=== PATIENT | female | born 1955 | race Caucasian/White ===

== ENCOUNTER 2019-06-25 06:20 | Inpatient (IN) ==
[2019-06-25] MEDS ORDERED: NS 1,000 ML IV ONE ×2 (06:46→12:28)
[2019-06-25] MEDS ORDERED: MOTRIN PO ONE (07:18)
[2019-06-25 07:21] LABS: BILIRUBIN URINE NEGATIVE (NEGATIVE); BLOOD URINE 4+ (NEGATIVE); CLARITY SL. CLOUDY (CLEAR); COLOR AMBER; KETONE URINE 3+(Large) mg/dL (NEGATIVE); LEUKOCYTES URINE 2+ (NEGATIVE); NITRITE URINE NEGATIVE (NEGATIVE); PH URINE 6.5; PROTEIN URINE 2+(100 mg/dL) mg/dL (NEGATIVE); UROBILINOGEN URINE 1 mg/dL
[2019-06-25 07:22] LABS: BASO# 0.02 X1000 (0.0-0.2); BASO% 0.2 % (0.0-0.8); EOS# 0.02 X1000 (0.0-0.7); EOS% 0.2 % (0.0-10.0); HEMATOCRIT 38.2 % (37.0-47.0); HEMOGLOBIN 13.3 g/dL (12.0-16.0); IMM GRAN# 0.02 X1000 (0.0-0.04); IMM GRAN% 0.2 % (0.0-0.5); LYMPH# 0.84 X1000 (1.2-3.4); LYMPH% 6.7 % (20.5-51.1); MCHC 34.8 g/dL (33-37); MCV 83.2 FL (81-99); MONO# 0.54 X1000 (0.11-0.59); MONO% 4.3 % (1.7-9.3); MPV 9.6 FL (7.4-10.4); NEUT# 11.18 X1000 (1.4-6.5); NEUT% 88.4 % (42.2-75.2); PLT 176 X1000 (130-400); RBC 4.59 XMIL (4.2-5.4); RDW 14.3 % (11.5-14.5); WBC 12.62 X1000 (4.8-10.8)
--- NOTE | 2019-06-25 07:26 | PROVIDER DOCUMENTATION ---
HPI-Abdominal Pain/GI Problem - General Chief Complaint: Fever Stated Complaint: VOMITING / FEVER / SORE THROAT Time Seen by Provider: 06/25/19 07:20 Source: patient Allergies/Adverse Reactions: Patient Allergies Allergy/AdvReac Type Severity Reaction Status Date / Time morphine Allergy NAUSEA Verified 06/25/19 08:48 Penicillins Allergy RASH Verified 04/30/18 18:08 Home Medications: Home Medication List Medication Instructions Recorded Confirmed Last Taken Type NK [No Home Medications] 06/25/19 06/25/19 Unknown History - History of Present Illness-ABD Nature of Presenting Problems: vomited x 2 wednesday and fever 102 vomiting foamy stuff wednesday night off and on all day yesterday and today with epigastric pain sees stephon elias sore throat on fire.has hx ibs/pancreatitis sp gb sp ercp 10 yrs Abdominal Pain Onset Location: reports: epigastric Pain Radiation: reports: no radiation Quality of Pain: reports: sharp Severity in ED: reports: mild Onset/Duration: reports: 2 days ago Timing: reports: gone now Activities at Onset: reports: none Exposure to sick contacts?: No Modifying Factors: worse with: eating, vomiting Associated Symptoms: reports: diarrhea, fever/chills, loss of appetite, nausea, vomiting Last BM: this morning Dark Stools Present?: reports: none noticed # of Diarrhea Episodes: 3 # of Vomiting Episodes: 12 Emesis Description: reports: none Bruising or Bleeding Gums?: No Similar Symptoms Previously?: No Recently seen or treated by another doctor?: No Review of Systems - Adult - REVIEW OF SYSTEMS - ADULT Constitutional: reports: chills, fever, fatique Eyes: reports: no symptoms reported Ears, Nose, Mouth & Throat: reports: no symptoms reported Cardiovascular: reports: no symptoms reported Respiratory: denies: cough, shortness of breath Gastrointestinal: reports: no symptoms reported Genitourinary: denies: frequency, hematuria Musculoskeletal: reports: muscle aches Integumentary: reports: no symptoms reported Neurological: reports: no symptoms reported Endocrine: reports: no symptoms reported Allergic/Immunologic: reports: no symptoms reported Past History - Adult - PAST MEDICAL HISTORY-ADULT Review of Records: reports: Nursing Assessment Review, Medications Reviewed, Social history reviewed & non-contributory. Major Childhood Illnesses: reports: denies history Cardiovascular: reports: HTN Respiratory: reports: bronchitis Gastrointestinal: reports: cholelithiasis, GERD, IBS, pancreatitis. denies: diverticulosis, hepatitis Obstetrical/Gynecological: reports: other (breast ca) Genitourinary: reports: denies history Musculoskeletal: reports: chronic pain, fibromyalgia Neurological: reports: denies history Endocrine/Immune: denies: Diabetes, thyroid disorder - PRIOR SURGERIES/PROCEDURES Surgical/Procedure History: reports: cholecystectomy, hysterectomy, other (left breast lumpectomy) - IMMUNIZATION STATUS Childhood Immunizations: See Nurse Assessment Flu Vaccine: See Nurse Assessment - SOCIAL HISTORY Smoking: denies Substance Use: none/never Alcohol Use Frequency: never Physical Exam-General - PHYSICAL EXAM-ADULT Initial Vital Signs Reviewed: Yes - CONSTITUTIONAL General Appearance: appears well - EYES Eyes: PERRL/EOMI, pink conjunctivae - HEAD, EARS, NOSE, MOUTH & THROAT HENMT: normocephalic/atraumatic, moist mucous membranes, normal ENT inspection - NECK Neck: non-tender, full range of motion, supple - RESPIRATORY Respiratory: chest non-tender, lungs clear, normal breath sounds - CARDIOVASCULAR Cardiovascular: normal peripheral pulses, regular rate, rhythm, no edema - GASTROINTESTINAL (ABDOMEN) Abdominal Exam: normal bowel sounds, non tender, soft, no organomegaly - LYMPHATIC Lymphatic: no adenopathy - MUSCULOSKELETAL Back Exam: normal inspection, no CVA tenderness, no vertebral tenderness Extremity: normal range of motion, non-tender, normal gait - SKIN Integumentary: normal color, normal turgor - NEUROLOGIC Neurologic: 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 as tested, grossly normal - PSYCHIATRIC Psych/Mental Status: oriented x 3 Progress - PLAN OF CARE/RESULTS Progress/Plan/Lab Results: Vital Signs - 8 hr 06/25/19 06:30 Temperature 101.2 F H Pulse Rate 129 H Respiratory Rate 20 Blood Pressure 165/96 O2 Sat by Pulse Oximetry 98 Orders Category Date Time Status CHEST-1 VIEW [RAD] Stat Exams 06/25/19 06:46 Ordered AMYLASE [CHEM] Stat Lab 06/25/19 06:59 Received BLOOD CULTURE [BLDCUL] Stat Lab 06/25/19 06:59 Ordered CBC WITH ELECTRONIC DIFF [HEME] Stat Lab 06/25/19 06:59 Results COMPREHENSIVE METABOLIC PANEL [CHEM] Stat Lab 06/25/19 06:59 Received LACTATE, PLASMA [CHEM] Stat Lab 06/25/19 06:59 Received LIPASE [CHEM] Stat Lab 06/25/19 06:59 Received UA NIMS W/REFLEX CULT PL [URINALYSIS] Stat Lab 06/25/19 06:47 Received 0.9% Sodium Chloride Inj [Ns] 1,000 ml Med 06/25/19 06:46 Active IV 999 mls/hr Ibuprofen [Motrin] Med 06/25/19 07:18 Discontinued 600 mg PO NOW ONE Laboratory Tests 06/25/19 06/25/19 06/25/19 06:47 06:59 06:59 WBC 12.62 H RBC 4.59 Hgb 13.3 Hct 38.2 MCV 83.2 MCH 29.0 MCHC 34.8 RDW Std Deviation 14.3 Plt Count 176 MPV 9.6 Immature Gran % (Auto) 0.2 Neut % (Auto) 88.4 H Lymph % (Auto) 6.7 L [place] % (Auto) 4.3 Eos % (Auto) 0.2 Baso % (Auto) 0.2 Immature Gran # (Auto) 0.02 Neut # (Auto) 11.18 H Lymph # (Auto) 0.84 L [place] # (Auto) 0.54 Eos # (Auto) 0.02 Baso # (Auto) 0.02 PT INR PTT (Actin FS) Sodium Potassium Chloride Carbon Dioxide Anion Gap BUN Creatinine Estimated GFR/1.73 m2 BUN/Creatinine Ratio Glucose Calculated Osmolality Calcium Total Bilirubin AST ALT Alkaline Phosphatase Total Protein Albumin Globulin Albumin/Globulin Ratio Amylase 38 Lipase Plasma Lactate Urine Source CLEAN CATCH Urine Color ZAINAB Urine Clarity SL. CLOUDY A Urine pH 6.5 Ur Specific [place] 1.020 Urine Protein 2+(100 mg/dL) A Urine Ketones 3+(Large) A Urine Blood 4+ Urine Nitrite NEGATIVE Urine Bilirubin NEGATIVE Urine Urobilinogen 1 Urine Microscopic RBC 20-40 A Urine WBC 2+ A Urine Microscopic WBC 10-20 A Ur Epithelial Cells <10 Urine Bacteria 1+ Urine Glucose TRACE(50 mg/dL) A 06/25/19 06/25/19 06/25/19 06:59 06:59 06:59 WBC RBC Hgb Hct MCV MCH MCHC RDW Std Deviation Plt Count MPV Immature Gran % (Auto) Neut % (Auto) Lymph % (Auto) [place] % (Auto) Eos % (Auto) Baso % (Auto) Immature Gran # (Auto) Neut # (Auto) Lymph # (Auto) [place] # (Auto) Eos # (Auto) Baso # (Auto) PT 13.7 INR 1.00 PTT (Actin FS) 30.5 Sodium 136 Potassium 4.1 Chloride 94 L Carbon Dioxide 26 Anion Gap 17 BUN 13 Creatinine 0.5 Estimated GFR/1.73 m2 > 60 BUN/Creatinine Ratio 26 Glucose 150 H Calculated Osmolality 275 Calcium 7.8 L Total Bilirubin 3.30 H AST 27 ALT 24 Alkaline Phosphatase 96 Total Protein 6.8 Albumin 4.4 Globulin 2.0 Albumin/Globulin Ratio 2.0 Amylase Lipase 13 Plasma Lactate 2.4 H Urine Source Urine Color Urine Clarity Urine pH Ur Specific [place] Urine Protein Urine Ketones Urine Blood Urine Nitrite Urine Bilirubin Urine Urobilinogen Urine Microscopic RBC Urine WBC Urine Microscopic WBC Ur Epithelial Cells Urine Bacteria Urine Glucose Result Diagrams: 06/25/19 06:59 06/25/19 06:59 - XRAY 1 XRAY Study: Chest Impression: See EMR Report ([facility] - [address] [facility], [address] [place] [id number] [facility] - [address] [place] [address] Department of Imaging Patient: TIGRE BROUSSARD Date: 06/25/19MR#: [id number] : 1955DM Status: PRE ERAcct#: [id number] Age/Sex: 64/FRoom/Bed: Loc: P.ED Ordering Physician: Samanta Salas MD Family Physician: Rashid Nicholas MD Reason for Procedure: SEPSIS Signed EXAM: CHEST-1 VIEW 06/25/2019 HISTORY: SEPSIS TECHNIQUE: AP portable at 0730 COMMENT: There is platelike atelectasis in the lingula. This was not present on 05/29/2019. The inspiration is generally less optimal than on the previous study. IMPRESSION: Lingular atelectasis. Electronically signed by Amaury Paulino 06/25/2019 7:47 AM 06/25/19 0747 Interpreting Physician: Amaury Paulino MD Dictated Date/Time: 06/25/19 0746 cc: Samanta Salas MD; Rashid Nicholas MD) - CT/MRI 1 CT Study: Abdomen, Pelvis Impression: See EMR Report ([facility] - [address] , [address], [place] [address] [facility] - [address] [place] [address] Department of Imaging Patient: TIGRE BROUSSARD Date: 06/25/19#: [id number] : 1955DM Status: [facility]#: [id number] Age/Sex: 64/FRoom/Bed: Loc: P.ED Ordering Physician: Mil Bond MD Family Physician: Rashid Nicholas MD Reason for Procedure: epigastric pain Signed EXAM: CT ABD/PELVIS W/IV CONT ONLY 06/25/2019 HISTORY: epigastric pain TECHNIQUE: This exam was performed using automated exposure control, adjustment of mA or kV according to patient size, and/or use of iterative reconstruction technique. COMMENT: The current study is compared with the previous examination of 04/18/2013. There is dependent atelectasis in both lower lobes. There is platelike fibrosis in the inferior lingula. This was present at the time the previous study. There is a small hiatal hernia. The spleen is at the upper limits of normal in size. There has been cholecystectomy. There is some fatty change near the falciform ligament groove. There is no evidence of hydronephrosis or mass in the kidneys. The right renal pelvis is prominent and this has not changed since the previous study. There is a questionable nodule in the left adrenal gland centrally measuring 12 mm in diameter. This is larger than on the previous examination. In the absence of a history of neoplasm this is likely an adenoma. The pancreas is stable in appearance. There are some prominent mesenteric nodes on the left one of which measures is much as 15 mm in long axis. There is increased density in the mesenteric fat consistent with mild mesenteric panniculitis. There is no evidence of bowel obstruction. The abdominal aorta is normal in caliber and the mesenteric and renal arteries are patent. Pelvis: The appendix is normal in appearance. There is no evidence of free fluid. There has been previous hysterectomy. The urinary bladder is unremarkable. There are no masses and there is no evidence of significant adenopathy. There are some degenerative disc and facet changes in the lumbar spine. There is no evidence of acute bony abnormality. IMPRESSION: Mesenteric panniculitis. Bibasilar subsegmental atelectasis. Electronically signed by Amaury Paulino 06/25/2019 9:48 AM 06/25/19 0948 Interpreting Physician: Amaury Paulino MD Dictated Date/T stephanie: 06/25/19 0942 cc: Mil Bond MD; Rashid Nicholas MD) - CONSULTS/PCP/HOSPITALIST Notification #1 *Consult/PCP/Hospitalist*: Dr. Lima Time Discussed: 10:47 Reason/Comments: UTI; panniculitis Consult Disposition: Admit Departure - Departure Date of Disposition Decision: 06/25/19 Time of Disposition Decision: 10:47 DIAGNOSIS: Panniculitis UTI (urinary tract infection) Qualifiers: Urinary tract infection type: site unspecified Hematuria presence: with hematuria Qualified Code(s): N39.0 - Urinary tract infection, site not specified; R31.9 - Hematuria, unspecified Disposition: ADMITTED INPATIENT 09 Certified Medical Emergency: Emergent Condition: Fair Referrals and Follow-Ups: Rashid Nicholas MD [Primary Care Provider] - - Critical Care Note This patient required my direct & personal management of CC.: No Attestation - Physician/ URI Attestation Patient care was provided by Advanced Practice Provider:: No The physician spent face to face time with patient:: Yes Advanced Practice Provider documentation review:: Supervising physician onsite and consulted in the evaluation and care of this patient. The physician did have a face to face encounter with the patient.
--- NOTE | 2019-06-25 07:49 | Diag Imaging Result Doc PS360 ---
EXAM: CHEST-1 VIEW 06/25/2019 HISTORY: SEPSIS TECHNIQUE: AP portable at 0730 COMMENT: There is platelike atelectasis in the lingula. This was not present on 05/29/2019. The inspiration is generally less optimal than on the previous study. IMPRESSION: Lingular atelectasis. Electronically signed by Amaury Paulino 06/25/2019 7:47 AM
[2019-06-25 07:54] LABS: AGAP 17; ALBUMIN 4.4 g/dL (3.5-5.0); ALKALINE PHOSPHATASE 96 U/L (32-104); BUN 13 mg/dL (8-22); CALCIUM 7.8 mg/dL (8.8-10.2); CHLORIDE 94 mmol/L (98-107); COSMO 275; CREATININE 0.5 mg/dL (0.5-0.9); ESTIMATED GFR > 60; GLUCOSE 150 mg/dL (70-104); GOT 27 U/L (10-30); GPT 24 U/L (10-36); LIPASE 13 U/L (13-60); POTASSIUM 4.1 mmol/L (3.5-5.1); SODIUM 136 mmol/L (136-145); TCO2 26 mmol/L (25-35); TOTAL PROTEIN 6.8 g/dL (6.3-8.3)
[2019-06-25 08:15] LABS: URINE BACTERIA 1+ /HFP; URINE EPITHELIAL CELLS <10 /HPF (<10); URINE RBC 20-40 /HPF (<10); URINE SOURCE CLEAN CATCH
[2019-06-25] MEDS ORDERED: MERREM 1 GM in NS 50 ML IV ONE (08:52)
[2019-06-25] MEDS ORDERED: VANCOMYCIN 1 GM/NS 1 GM/250 ML IVPB IV ONE ×2 (08:54→13:00)
--- NOTE | 2019-06-25 09:50 | Diag Imaging Result Doc PS360 ---
EXAM: CT ABD/PELVIS W/IV CONT ONLY 06/25/2019 HISTORY: epigastric pain TECHNIQUE: This exam was performed using automated exposure control, adjustment of mA or kV according to patient size, and/or use of iterative reconstruction technique. COMMENT: The current study is compared with the previous examination of 04/18/2013. There is dependent atelectasis in both lower lobes. There is platelike fibrosis in the inferior lingula. This was present at the time the previous study. There is a small hiatal hernia. The spleen is at the upper limits of normal in size. There has been cholecystectomy. There is some fatty change near the falciform ligament groove. There is no evidence of hydronephrosis or mass in the kidneys. The right renal pelvis is prominent and this has not changed since the previous study. There is a questionable nodule in the left adrenal gland centrally measuring 12 mm in diameter. This is larger than on the previous examination. In the absence of a history of neoplasm this is likely an adenoma. The pancreas is stable in appearance. There are some prominent mesenteric nodes on the left one of which measures is much as 15 mm in long axis. There is increased density in the mesenteric fat consistent with mild mesenteric panniculitis. There is no evidence of bowel obstruction. The abdominal aorta is normal in caliber and the mesenteric and renal arteries are patent. Pelvis: The appendix is normal in appearance. There is no evidence of free fluid. There has been previous hysterectomy. The urinary bladder is unremarkable. There are no masses and there is no evidence of significant adenopathy. There are some degenerative disc and facet changes in the lumbar spine. There is no evidence of acute bony abnormality. IMPRESSION: Mesenteric panniculitis. Bibasilar subsegmental atelectasis. Electronically signed by Amaury Paulino 06/25/2019 9:48 AM
[2019-06-25 10:41] LABS: PROTIME 13.7 Seconds (11.0-16.0)
[2019-06-25 10:42] LABS: PTT 30.5 Seconds (22.3-41.8)
[2019-06-25] MEDS ORDERED: MOTRIN PO PRN (11:13)
[2019-06-25] MEDS ORDERED: VANCOMYCIN IV PER PHARMACY MISC SCH (11:15)
[2019-06-25] MEDS: LOVENOX SUBQ SCH (11:50)
[2019-06-25] MEDS: NS 1,000 ML IV SCH ×2 (11:50→21:51)
[2019-06-25] MEDS: TYLENOL PO PRN ×2 (13:06→21:57)
--- NOTE | 2019-06-25 15:16 | HISTORY AND PHYSICAL ---
WEATHER STRIPPER: Dr. Rashid Nicholas. CHIEF COMPLAINT: Fever, nausea, vomiting and abdominal pain. HISTORY OF PRESENT ILLNESS: Ms Castro is a 64-year-old female. She presented to the ER today with complaints of fever, nausea, vomiting, and abdominal pain that started on Wednesday. The patient states she has been unable to eat or drink anything since . She has also got severe weakness, headache, right-sided abdominal pain. She had some diarrhea yesterday. When she vomits she states the vomit is a foamy consistency and a very small amount. She has had chills. She denies any sweats. Denies any palpitations. States that she has not been disoriented however though she has felt very foggy headed. The patient is positive for abdominal tenderness to the lower right side and in the midsternal area. This is worse with palpation. The patient states that she has not had any difficulty urinating. She does not have any blood in her urine. She does not have any frequency or urgency. When asked her if she had any pain when urinating she states that she did have some pain noted to her right side. This was last week sometime and it was above her hip bone. The patient states she has also been having some swelling of her feet but this has been going on for the past 6 months. She does not have any swelling at this time. The patient has had a past medical history of pancreatitis, they actually had do procedure on her to open up the pancreatic duct. She also has a past medical history of H pylori. She has also had breast cancer to the left side. She had a lumpectomy and she received chemo and radiation. This was in 2005. The patient denies any chest pain, just lower sternal midabdominal pain and she denies any palpitations. The patient is complaining of a headache at this present time. LABORATORY FINDINGS: Show a white blood cell count elevation at 2.62, her plasma lactate is elevated at 2.5. Her glucose is elevated at 150, total bilirubin is elevated at 3.3. Her AST is 27, ALT is 24. CT of the abdomen and pelvis was performed. It did show some mesenteric panniculitis and bibasilar segmental atelectasis. PAST MEDICAL HISTORY: Pancreatitis, H pylori. PAST SURGICAL HISTORY: The patient had a surgery on her pancreas at the opening pancreatic duct to increase the size. She has had a cholecystectomy, hysterectomy, lumpectomy from the left breast from cancer, this was in 2005, she received chemo and radiation. FAMILY HISTORY: Her dad from colon cancer. Her mom had diabetes and she is also . She has a sister that has lung cancer. SOCIAL HISTORY: Patient lives in [place], [place]. She lives with her . Her is disabled and she takes care of him. She denies any alcohol, smoking, or illicit drug abuse. ALLERGIES: Morphine and penicillin. HOME MEDICATIONS: No home medications. LABS AND DIAGNOSTICS: Sodium 136, potassium 4.1, chloride 94, carbon dioxide 26, anion gap 17, BUN is 13, creatinine is 0.5, GFR is greater than 60, glucose is 150, calcium is 7.8, total bilirubin is 3.30, AST 27, ALT 24, alkaline phosphatase is 96, creatine kinase is 49, troponin is less than 0.01, plasma lactate is 24, amylase is 38, lipase is 13. PT 13.7, INR is 1, PTT is 30.5. White blood cell count is 12.62, red blood cell count is 4.56, hemoglobin is 13.3, hematocrit is 38.2, platelet count is 176,000. Urinalysis shows a pH of 6.5, urine specific gravity of 1.020, urine protein is positive 2+, urine ketones is positive 3+, urine blood is positive 4+, urobilinogen is 1, microscopic RBCs are 20 to 40, white blood cell count 2+ with 10 to 20 microscopic white blood cell count. Urine bacteria is 1+ and trace glucose. CT of the abdomen and pelvis shows mesenteric panniculitis and bibasilar segmental atelectasis. Chest x-ray shows lingular atelectasis. REVIEW OF SYSTEMS: A 10 point review of systems has been obtained. All are negative except what is stated above in the HPI. PHYSICAL EXAMINATION: VITAL SIGNS: Temperature 99.1 degrees, pulse rate is 95, respiratory rate 15, blood pressure is 150/94, O2 saturation is 97% on room air, weight is 160 pounds, height is 5 feet 4. GENERAL: This is a 64-year-old female. She is lying in the ER stretcher. She is well nourished, well developed. She is in no acute distress at present time. HEENT: Atraumatic, normocephalic. Pupils are equal, reactive to light. Extraocular movements are intact. Sclerae is jaundice. Mucous membranes are dry. NECK: Supple. No lymphadenopathy. Trachea is midline. No JVD. No thyromegaly. No bruits. CARDIOVASCULAR: Regular rate and rhythm. No murmurs, gallops, or rubs appreciated. RESPIRATORY: Lung sounds are clear with equal chest excursion. Respirations are nonlabored with no accessory muscle usage. ABDOMEN: Tender to the right side and below the sternal area to palpation. It is soft, it is nondistended and bowel sounds are present x4. NEUROLOGIC: Cranial nerves 2-12 was intact. The patient is awake, alert, oriented, able to follow all commands appropriately. MUSCULOSKELETAL: Full distal strength noted. No abnormalities of gait. No deformities. EXTREMITIES: No clubbing, no cyanosis, no edema. DP and PT pulses are present and palpable. SKIN: Warm, dry, and intact. There is no rashes. No bruising, no diaphoresis. ASSESSMENT AND PLAN: 1. Urinary tract infection. This is possibly a pyelonephritis. Patient states she has not had any blood noted in her urine or any type of drainage. She does not complain any pain, urgency or frequency however, she did have some pain noted to the right side last week sometime. Urinalysis is positive. We will go ahead and admit her to the medical floor. We are going to treat her with some IV antibiotics and start her on IV fluid hydration. 2. Mesenteric panniculitis. As stated above we have started her on IV antibiotics and I have started her on some ibuprofen and Tylenol for the pain. 3. Nausea and vomiting. The patient states she is not been able to keep anything down. We are going to treat her with IV Zofran for this, this is probably likely due to her infection. The patient states she is not vomiting anything up and she did have 1 episode of diarrhea but however she has not been able to eat anything. CT of the abdomen was performed, did show mesenteric panniculitis and patient does have a urinary tract infection. 4. Hyperbilirubinemia. Patient does appear to be a little jaundice. I am going to repeat her labs in the morning. We are going to give her some IV fluid hydration. The patient has had a history of pancreatitis in the past and she also had to have some kind of surgery done to her opening her pancreas. She does not have a gallbladder and her liver enzymes are not elevated. We will see if this resolves with some hydration. 5. Dehydration, I started her on IV fluid hydration. She was given a bolus in the emergency room. Will start her on a diet whenever she is able to hold any fluids down. 6. Abdominal pain. This is likely due to her infection. I started her on some Tylenol and some ibuprofen for her pain. 7. Deep venous thrombosis prophylaxis. I placed her on Lovenox 40 mg subcu q.24 hours. 8. Gastrointestinal prophylaxis. I started her on Prilosec daily. We admitted this patient to the medical floor. We started her on IV fluid hydration and we placed her on IV antibiotics, given her Motrin and Tylenol for her pain, we going to start her on a clear liquid diet and give her IV Zofran as needed for nausea. All other further treatment pending hospital course and lab data. Dictated by TANYA Marinelli for Danis Lima MD cc: Rashid Nicholas MD MTDD
--- NOTE | 2019-06-25 16:31 | HISTORY AND PHYSICAL ---
ADDENDUM: Patient seen and examined by myself. Full note dictated and discussed with nurse practitioner. The patient notes she has had chronic nausea and vomiting off and on for the last several years. She had pancreatitis close to 10 years ago but since that time she frequently will have emesis episodes. Notes that this one seems to be a little bit more severe and a little bit worse. She does have a history of H. pylori as well. She typically does not run fever with these vomiting episodes. It appears as though she has a urinary infection with blood in her urine so we are going to place her on antibiotics. She does have mesentery panniculitis as well. We will continue IV fluids, antibiotics, and we will follow her course. cc: Danis Lima MD
[2019-06-25] MEDS: MERREM 1 GM in NS 50 ML IV SCH (18:14)
[2019-06-26] MEDS: VANCOMYCIN 1,500 MG in NS 250 ML IV SCH ×2 (03:19→12:05)
[2019-06-26] MEDS: MERREM 1 GM in NS 50 ML IV SCH ×3 (03:20→20:18)
[2019-06-26 05:48] LABS: BASO% 0.3 % (0.0-0.8); EOS% 2.8 % (0.0-10.0); HEMATOCRIT 35.6 % (37.0-47.0); IMM GRAN% 0.3 % (0.0-0.5); LYMPH% 13.8 % (20.5-51.1); MCH 28.3 PG (27-31); MCHC 33.7 g/dL (33-37); MONO% 7.2 % (1.7-9.3); MPV 9.7 FL (7.4-10.4); NEUT# 4.38 X1000 (1.4-6.5); NEUT% 75.6 % (42.2-75.2); PLT 159 X1000 (130-400); RBC 4.24 XMIL (4.2-5.4); RDW 14.3 % (11.5-14.5)
[2019-06-26 05:49] LABS: BASO# 0.02 X1000 (0.0-0.2); EOS# 0.16 X1000 (0.0-0.7); IMM GRAN# 0.02 X1000 (0.0-0.04); MONO# 0.42 X1000 (0.11-0.59)
[2019-06-26] MEDS: TYLENOL PO PRN ×2 (06:26→16:36)
[2019-06-26] MEDS: PRILOSEC PO SCH (06:29)
[2019-06-26 06:41] LABS: AGAP 12; BUN 4 mg/dL (8-22); CHLORIDE 105 mmol/L (98-107); COSMO 281; CREATININE 0.4 mg/dL (0.5-0.9); ESTIMATED GFR > 60; GLUCOSE 121 mg/dL (70-104); POTASSIUM 3.2 mmol/L (3.5-5.1); SODIUM 142 mmol/L (136-145); TCO2 25 mmol/L (25-35)
[2019-06-26] MEDS: NS 1,000 ML IV SCH (07:40)
[2019-06-26] MEDS ORDERED: KLOR-CON PO ONE (08:26)
[2019-06-26] MEDS ORDERED: NS 1,000 ML IV SCH ×2 (08:27→17:29)
[2019-06-26] MEDS: CALTRATE 600 PO SCH ×2 (09:43→20:19)
[2019-06-26] MEDS: LOVENOX SUBQ SCH (10:58)
[2019-06-26] MEDS ORDERED: APRESOLINE PO PRN (17:29)
--- NOTE | 2019-06-26 18:44 | PROGRESS NOTE ---
DATE: 06/26/2019 SUBJECTIVE: Patient notes that her nausea is improving, her abdominal pain is improved. Denies any fevers currently. PHYSICAL: Temperature 98, pulse 95, respiratory 18, BP 142/71.General: Patient is awake, alert, very pleasant. She is in no distress, appears to be feeling better than she did on yesterday's exam. HEENT: Normocephalic. Neck: Supple. Cardiovascular: Regular rate. Chest: Clear. Abdomen: Soft, diffusely but minimally tender. Positive bowel sounds. Extremities: Moves all extremities. Neuro: No changes. ASSESSMENT: 1. Hypocalcemia, calcium is at 7. We will give her calcium pills and recheck in the a.m. 2. Urinary tract infection, culture pending . 3. Mesenteric panniculitis, appears to be improving. 4. Nausea, vomiting improving. 5. Volume depletion resolved. PLAN: Will advance diet, continue antibiotics. Continue symptomatic care. Further orders as needed. cc: Danis Lima MD
[2019-06-27] MEDS: MERREM 1 GM in NS 50 ML IV SCH ×3 (03:26→20:00)
[2019-06-27] MEDS: VANCOMYCIN 1,500 MG in NS 250 ML IV SCH (05:37)
[2019-06-27] MEDS: TYLENOL PO PRN ×2 (05:38→23:42)
[2019-06-27 06:34] LABS: HEMATOCRIT 35.6 % (37.0-47.0); MCHC 33.7 g/dL (33-37); MCV 83.2 FL (81-99); MPV 9.3 FL (7.4-10.4); RBC 4.28 XMIL (4.2-5.4); RDW 14.1 % (11.5-14.5); WBC 4.65 X1000 (4.8-10.8)
[2019-06-27 06:44] LABS: AGAP 12; ALBUMIN 3.9 g/dL (3.5-5.0); ALKALINE PHOSPHATASE 95 U/L (32-104); BUN 3 mg/dL (8-22); CALCIUM 7.6 mg/dL (8.8-10.2); CHLORIDE 103 mmol/L (98-107); COSMO 280; CREATININE 0.5 mg/dL (0.5-0.9); ESTIMATED GFR > 60; GLUCOSE 107 mg/dL (70-104); GOT 20 U/L (10-30); GPT 24 U/L (10-36); MAGNESIUM 1.8 mg/dL (1.5-2.7); POTASSIUM 3.3 mmol/L (3.5-5.1); SODIUM 142 mmol/L (136-145); TCO2 27 mmol/L (25-35); TOTAL PROTEIN 6.5 g/dL (6.3-8.3)
[2019-06-27] MEDS: PRILOSEC PO SCH (08:28)
[2019-06-27] MEDS: CALTRATE 600 PO SCH ×2 (08:28→20:00)
[2019-06-27] MEDS: ZOFRAN IV PRN ×2 (09:00→20:00)
[2019-06-27] MEDS: LOVENOX SUBQ SCH (11:18)
--- NOTE | 2019-06-27 11:21 | Diag Imaging Result Doc PS360 ---
EXAM: CT ABD/PELVIS W/PO AND IV CON HISTORY: abnl previous CT TECHNIQUE: CT abdomen and pelvis with oral and intravenous contrast COMPARISON: 06/25/2019 FINDINGS: The gallbladder has been removed. There is mild fatty infiltration of the liver. Small hiatal hernia is present. Normal spleen, pancreas, and right adrenal gland. Tiny left adrenal nodule. No renal masses. No aortic aneurysm. Moderate atherosclerosis. No significant change in the mesenteric nodes with minimal adjacent inflammation. Normal appendix. No abscess. No bowel obstruction. No ascites. The urinary bladder is distended and normal. The uterus has been removed. No pelvic mass. IMPRESSION: Mild mesenteric adenitis with little change compared to prior exam. This exam was performed using automated exposure control, adjustment of mA or kV according to patient size, and/or use of iterative reconstruction technique. Electronically signed by Zuhair Nicolas 06/27/2019 11:18 AM
--- NOTE | 2019-06-27 18:44 | PROGRESS NOTE ---
DATE: 06/27/2019 SUBJECTIVE: Patient notes that her abdominal pain and cramping seem to be better. She is starting to tolerate a diet. She denies any fevers or chills, but still has some diffuse abdominal pain. OBJECTIVE: Temperature 98, pulse 88, respiratory 18, BP 159/80.General: Patient is in no current respiratory distress. HEENT: Normocephalic. Neck: Supple. Cardiovascular: Regular rate. Chest: Clear, nonlabored. Abdomen: Soft diffusely, but minimally tender. Extremities: Moves all extremities. Neurologic: No changes. ASSESSMENT: 1. Urinary tract infection. Urine culture is still growing. 2. Mesenteric panniculitis. 3. Hypokalemia. 4. Hyperbilirubinemia. Appears resolved. PLAN: We are going to repeat a CT. Assuming this is normal, will advance her diet, and hopefully home in the next day or two. cc: Danis Lima MD
[2019-06-27] MEDS ORDERED: NS 1,000 ML IV SCH (20:16)
[2019-06-28] MEDS: MERREM 1 GM in NS 50 ML IV SCH (03:26)
[2019-06-28 07:15] VITALS: BP 156/75
[2019-06-28] MEDS ORDERED: PRINIVIL PO SCH (09:00)
[2019-06-28] MEDS ORDERED: LEVAQUIN PO SCH (09:00)
[2019-06-28] MEDS: PRILOSEC PO SCH (09:19)
[2019-06-28] MEDS: CALTRATE 600 PO SCH (09:20)
[2019-06-28] MEDS: LOVENOX SUBQ SCH (09:22)
--- NOTE | 2019-06-28 12:55 | DISCHARGE SUMMARY ---
ADMISSION DATE: 06/25/2019 DISCHARGE DATE: 06/28/2019 PRIMARY CARE PHYSICIAN: Dr. Rashid Nicholas. ADMISSION DIAGNOSES: 1. Urinary tract infection with possible pyelonephritis. 2. Mesenteric panniculitis. 3. Nausea and vomiting. 4. Hyperbilirubinemia. 5. Dehydration. 6. Abdominal pain. DISCHARGE DIAGNOSES: 1. Proteus mirabilis urinary tract infection. 2. Mesenteric panniculitis. 3. Hypokalemia, improving. 4. Hyperbilirubinemia, resolved. SUMMARY OF FINDINGS: This is a 64-year-old female who presented to the ER with complaints of fever, nausea, vomiting, and abdominal pain. This started on the Wednesday prior to arriving. Stated that she had been unable to eat or drink anything since . Also felt severe weakness, headache, and right-sided abdominal pain with diarrhea the day before. When she vomits, she states that it is a foamy consistency and a very small amount and has also had chills. Her workup showed a total bilirubin of 3.30. On arrival, white blood cell count was 12.62. We did a CT of the abdomen and pelvis that showed an impression of mesenteric panniculitis. She was placed on IV antibiotics. Again, her urine culture grew out a Proteus mirabilis UTI that is been being treated appropriately. Her white blood cell count is back to normal at 4.65, and so it is felt now she has been afebrile for greater than 24 hours that she can safely be discharged home. We did repeat her CT of the abdomen and pelvis yesterday that showed mild mesenteric adenitis with little change compared to prior exam. DISCHARGE MEDICATIONS: It is felt that she can be safely discharged with discharge medications of Levaquin 500 mg p.o. daily #5 with no refills, Prinivil 10 mg p.o. daily #30 with no refills and ondansetron 4 mg p.o. q. 6 hours p.r.n. #30 with no refills. FOLLOW-UP: She will need to follow up with her primary care physician on 06/29/2019 at 2:30 p.m. and with GI, Dr. Weiss, on 07/11/2019 at 3:45 p.m. All discharge instructions have been reviewed with the patient and she verbalized understanding. TIME SPENT: This is a 35 minute discharge. Dictated by TANYA Cavanaugh for Danis Lima MD cc: TANYA Cavanaugh MD David Francis, MD Thomas P. Short, MD
--- NOTE | 2019-06-28 19:47 | DISCHARGE SUMMARY ---
ADMISSION DATE: 06/25/2019 DISCHARGE DATE: 06/28/2019 Addendum Report Patient seen and examined by myself. Full note dictated and discussed with nurse practitioner. On discharge, patient is awake, alert. She is in no distress. She does have a Proteus mirabilis urinary tract infection. She will be discharged home on antibiotics. She also has mesenteric adenitis, which is most likely viral. It does not appear to be giving her any trouble. She is drinking well. She will follow up outpatient with her primary GI regarding this if symptoms do not improve. cc: Danis Lima MD
== END 2019-06-28 10:42 | disposition home or self-care (01) | DRG 690 ==
LOC: P.ED 06:20 → P.MEDSURG 11:24
PROVIDERS: ATTEND Family Medicine

== ENCOUNTER 2019-06-29 13:47 | Inpatient (IN) ==
--- NOTE | 2019-06-29 15:17 | PROVIDER DOCUMENTATION ---
HPI-Abdominal Pain/GI Problem - General Chief Complaint: Abdominal Pain Stated Complaint: ABD PAIN Time Seen by Provider: 06/29/19 14:53 Allergies/Adverse Reactions: Patient Allergies Allergy/AdvReac Type Severity Reaction Status Date / Time morphine Allergy NAUSEA Verified 06/29/19 13:51 Penicillins Allergy RASH Verified 06/29/19 13:51 Home Medications: Home Medication List Medication Instructions Recorded Confirmed Last Taken Type Alprazolam 1 mg PO TID PRN 06/29/19 06/29/19 Unknown History Levofloxacin 500 mg PO DAILY 06/29/19 06/29/19 Unknown History Lisinopril 10 mg PO DAILY 06/29/19 06/29/19 Unknown History Ondansetron Odt [Zofran Odt] 4 mg PO Q6H PRN PRN 06/29/19 06/29/19 Unknown History Review of Systems - Adult - REVIEW OF SYSTEMS - ADULT Constitutional: reports: no symptoms reported. denies: see HPI, chills, fever, fatique, night sweats, weight gain, weight loss, other Eyes: reports: no symptoms reported. denies: see HPI, discharge, dry eyes, decreased vision, blurred vision, double vision, eye pain, redness, other Ears, Nose, Mouth & Throat: reports: no symptoms reported. denies: see HPI, ear discharge, ear pain, hearing loss, tinnitus, epistaxis, sinus problem, nose pain, loose teeth, mouth/dental pain, mouth swelling, hoarseness, throat pain, throat swelling, other Cardiovascular: reports: no symptoms reported. denies: see HPI, chest pain, edema, heart murmur, irregular heart rate, orthopnea, palpitations, poor circulation, PND, syncope, other Respiratory: reports: no symptoms reported. denies: see HPI, chronic cough, cough, dyspnea on exertion, excessive sputum production, hemoptysis, pleurisy, shortness of breath, wheezing, other Gastrointestinal: reports: see HPI, abdominal pain Past History - Adult - PAST MEDICAL HISTORY-ADULT Review of Records: reports: Nursing Assessment Review, Social history reviewed & non-contributory. Cardiovascular: reports: HTN Respiratory: reports: bronchitis Gastrointestinal: reports: cholelithiasis, GERD, IBS, pancreatitis. denies: diverticulosis, hepatitis Obstetrical/Gynecological: reports: other (breast ca) Genitourinary: reports: denies history Musculoskeletal: reports: chronic pain, fibromyalgia Neurological: reports: denies history Endocrine/Immune: denies: Diabetes, thyroid disorder - PRIOR SURGERIES/PROCEDURES Surgical/Procedure History: reports: cholecystectomy, hysterectomy, other (left breast lumpectomy) - IMMUNIZATION STATUS Childhood Immunizations: See Nurse Assessment Flu Vaccine: See Nurse Assessment Physical Exam-General - CONSTITUTIONAL General Appearance: alert, mild distress Progress - PLAN OF CARE/RESULTS Progress/Plan/Lab Results: Vital Signs - 8 hr 06/29/19 13:48 Temperature 98.2 F Pulse Rate 106 H Respiratory Rate 20 Blood Pressure 103/71 O2 Sat by Pulse Oximetry 95 Orders Category Date Time Status CT ABDOMEN/PELVIS W/WO CONTRAS [CT] Stat Exams 06/29/19 15:15 Ordered CBC WITH ELECTRONIC DIFF [HEME] Stat Lab 06/29/19 15:15 Uncollected COMPREHENSIVE METABOLIC PANEL [CHEM] Stat Lab 06/29/19 15:15 Uncollected Result Diagrams: 06/30/19 06:22 06/30/19 06:22 - CHANGE OF SHIFT REPORT (ED Provider) 1 Report Given and Care Transferred to:: TANYA Metcalf Time of Transfer: 16:50 Items Pending: CT/MRI Results Departure - Departure Date of Disposition Decision: 06/29/19 Time of Disposition Decision: 16:00 DIAGNOSIS: UTI (urinary tract infection), Nausea & vomiting Disposition: ADMITTED INPATIENT 09 Certified Medical Emergency: Emergent Condition: Stable - Critical Care Note This patient required my direct & personal management of CC.: No Attestation - Physician/ URI Attestation Patient care was provided by Advanced Practice Provider:: Yes Advanced Practice Provider:: Satnam Morris Advanced Practice Provider documentation review:: The Mid-level provider documentation, treatment plan and medical decision making was reviewed by the physician who agrees with all treatment and medical decision making by the [facility]. The physician spent face to face time with patient:: No Advanced Practice Provider documentation review:: Supervising physician onsite and consulted in the evaluation and care of this patient. The physician did not have a face to face encounter with the patient.
[2019-06-29 15:47] LABS: HEMOGLOBIN 14.8 g/dL (12.0-16.0); RBC 5.19 XMIL (4.2-5.4); WBC 12.45 X1000 (4.8-10.8)
[2019-06-29 15:48] LABS: BASO# 0.02 X1000 (0.0-0.2); BASO% 0.2 % (0.0-0.8); EOS# 0.02 X1000 (0.0-0.7); EOS% 0.2 % (0.0-10.0); HEMATOCRIT 42.4 % (37.0-47.0); IMM GRAN# 0.08 X1000 (0.0-0.04); IMM GRAN% 0.6 % (0.0-0.5); LYMPH# 0.94 X1000 (1.2-3.4); LYMPH% 7.6 % (20.5-51.1); MCH 28.5 PG (27-31); MCHC 34.9 g/dL (33-37); MCV 81.7 FL (81-99); MONO# 0.23 X1000 (0.11-0.59); MONO% 1.8 % (1.7-9.3); MPV 9.6 FL (7.4-10.4); NEUT# 11.16 X1000 (1.4-6.5); NEUT% 89.6 % (42.2-75.2); PLT 321 X1000 (130-400); RDW 14.3 % (11.5-14.5)
[2019-06-29 16:15] LABS: AGAP 17; ALBUMIN 4.4 g/dL (3.5-5.0); ALKALINE PHOSPHATASE 96 U/L (32-104); BUN 11 mg/dL (8-22); CHLORIDE 99 mmol/L (98-107); COSMO 287; CREATININE 0.5 mg/dL (0.5-0.9); ESTIMATED GFR > 60; GLUCOSE 151 mg/dL (70-104); GOT 74 U/L (10-30); GPT 61 U/L (10-36); POTASSIUM 3.9 mmol/L (3.5-5.1); SODIUM 143 mmol/L (136-145); TCO2 28 mmol/L (25-35); TOTAL PROTEIN 7.4 g/dL (6.3-8.3)
--- NOTE | 2019-06-29 17:41 | Diag Imaging Result Doc PS360 ---
EXAM: CT ABD/PELVIS W/IV CONT ONLY INDICATION: abd pain TECHNIQUE: This exam was performed using automated exposure control, adjustment of mA or kV according to patient size, and/or use of iterative reconstruction technique. COMPARISON: 06/27/2019 FINDINGS: There is minimal subsegmental atelectasis at the lung bases. During the short interval, there has been development of significant thickening of the ileal wall indicating enteritis. Inflammatory and infectious etiologies should be considered. Note that this was not present on the previous study. There has also been development of a small amount of fluid around these loops of small bowel. There is no evidence of bowel obstruction. There is no colonic wall thickening. There is a stable tiny hiatal hernia. The remainder of the GI tract is unremarkable. Otherwise, the abdomen and pelvis, including the mild hepatic steatosis and small left adrenal nodule that probably represents an adenoma, is stable. There is suggestion of mild mesenteric panniculitis that is unchanged. No free abdominal gas is identified. There is no evidence of acute osseous abnormality. IMPRESSION: Interval development of significant ileal wall thickening with a small amount of surrounding fluid indicating nonspecific enteritis. Consider infectious and inflammatory etiologies. Electronically signed by Alfonzo Pedroza 06/29/2019 5:39 PM
[2019-06-29 17:42] LABS: BILIRUBIN URINE NEGATIVE (NEGATIVE); CLARITY SLIGHTLY CLOUDY (CLEAR); COLOR AMBER; KETONE URINE 3+(Large) mg/dL (NEGATIVE)
[2019-06-29 17:43] LABS: BLOOD URINE 3+ (NEGATIVE); LEUKOCYTES URINE TRACE (NEGATIVE); NITRITE URINE NEGATIVE (NEGATIVE); PROTEIN URINE 2+(100 mg/dL) mg/dL (NEGATIVE); SP GRAVITY URINE 1.025; UROBILINOGEN URINE 1 mg/dL
[2019-06-29 17:44] LABS: URINE BACTERIA 2+ /HFP; URINE EPITHELIAL CELLS <10 /HPF (<10); URINE RBC <10 /HPF (<10); URINE SOURCE CLEAN CATCH; URINE WBC <10 /HPF (<10)
[2019-06-29] MEDS ORDERED: TYLENOL PO PRN (17:58)
[2019-06-29] MEDS ORDERED: ZOFRAN IV PRN (17:58)
[2019-06-29] MEDS ORDERED: VANCOMYCIN IV PER PHARMACY MISC SCH (18:00)
[2019-06-29] MEDS ORDERED: TORADOL IV ONE (18:02)
[2019-06-29] MEDS ORDERED: NS 1,000 ML ONE (18:13)
[2019-06-29] MEDS: NS 1,000 ML IV SCH (18:20)
[2019-06-29] MEDS ORDERED: VANCOMYCIN 1,600 MG in NS 250 ML IV ONE (18:45)
--- NOTE | 2019-06-29 19:19 | HISTORY AND PHYSICAL ---
CHIEF COMPLAINT: Nausea. HISTORY OF PRESENT ILLNESS: The patient is a 64-year-old female who actually was just in the hospital with nausea and vomiting. At that point, she had a CT which demonstrated mesenteric adenitis. That part of her symptoms continued to improve throughout the hospital stay. She was having some right-sided flank pain and ultimately grew bacteria in her urine that was sensitive to Levaquin. Her diet was advanced. She tolerated full liquids with no issues. CT was repeated and again showed mesenteric adenitis. She was discharged home. Today she comes back, noting after getting home she was no longer able to tolerate full liquids. She continued to worsen. This morning she started having increased nausea and vomiting, states that she has not kept anything down all day. She denies any fevers or chills. She states her abdominal pain seems different than when she was admitted previously. PAST MEDICAL HISTORY: History of pancreatitis and H. pylori. PAST SURGICAL HISTORY: She has had surgery on her pancreas to open her pancreatic duct. She has had a cholecystectomy, hysterectomy, lumpectomy from cancer in 2005, where she received chemotherapy and radiation. FAMILY HISTORY: Her father from colon cancer. Mother had diabetes and is also . Sister has lung cancer. SOCIAL HISTORY: She lives in [place]. She is . She does not smoke, drink or use illicit substances. ALLERGIES: Morphine and penicillin. MEDICATIONS: She is on no home medications, although during the last hospital stay she was started on lisinopril 10 mg for blood pressure and was discharged on Levaquin. PHYSICAL EXAMINATION: VITAL SIGNS: Reviewed. GENERAL: The patient is awake, alert. She is in no respiratory distress. She is obviously ill appearing. She appears nauseated. HEENT: Normocephalic. NECK: Supple. CARDIOVASCULAR: Regular rate. CHEST: Clear, nonlabored. ABDOMEN: Soft, diffusely tender. EXTREMITIES: Moves all extremities. NEUROLOGIC: No focal changes. ASSESSMENT: 1. Hyperbilirubinemia. The patient's bilirubin on the last admission was 3.2, then it drifted down to 1.2. It is still 1.2. 2. Acute hepatitis. The patient's AST and ALT both are elevated at 60 and 70, both of which were normal during the last hospital stay. 3. Enteritis. The patient's recent CT today showed enteritis. Her 2 previous CTs showed mesenteric adenitis without any colon inflammation. 4. Volume depletion. She has ketones in her urine. 5. Recent pyelonephritis, continues to improve. She is currently on Levaquin. 6. Hypertension. PLAN: We are going to admit the patient to the hospital, transfer her to [facility]. Ask GI for consultation, as at this point she is going to likely require endoscopy. We are going to start her back on vancomycin and Rocephin. She is allergic to penicillin, causing a rash I believe. We will place her on IV fluids. We will continue to follow her elevation in her transaminase levels. Further orders as needed. cc: Danis Lima MD
[2019-06-30] MEDS: NS 1,000 ML IV SCH ×3 (03:57→17:05)
[2019-06-30 07:06] LABS: HEMATOCRIT 32.2 % (37.0-47.0); HEMOGLOBIN 10.9 g/dL (12.0-16.0); MCH 29.1 PG (27-31); MCHC 33.9 g/dL (33-37); MCV 86.1 FL (81-99); RBC 3.74 XMIL (4.2-5.4); RDW 14.6 % (11.5-14.5); WBC 8.48 X1000 (4.8-10.8)
[2019-06-30 07:07] LABS: BASO# 0.05 X1000 (0.0-0.2); BASO% 0.6 % (0.0-0.8); EOS# 0.08 X1000 (0.0-0.7); EOS% 0.9 % (0.0-10.0); IMM GRAN# 0.06 X1000 (0.0-0.04); IMM GRAN% 0.7 % (0.0-0.5); LYMPH# 2.26 X1000 (1.2-3.4); LYMPH% 26.7 % (20.5-51.1); MONO% 9.4 % (1.7-9.3); MPV 9.6 FL (7.4-10.4); NEUT# 5.23 X1000 (1.4-6.5); NEUT% 61.7 % (42.2-75.2); PLT 259 X1000 (130-400)
[2019-06-30 07:45] LABS: AGAP 9; ALB/GLOB RATIO 1.6; ALBUMIN 3.2 g/dL (3.5-5.0); ALKALINE PHOSPHATASE 68 U/L (32-104); BUN 11 mg/dL (8-22); CALCIUM 7.4 mg/dL (8.8-10.2); CHLORIDE 104 mmol/L (98-107); COSMO 279; CREATININE 0.5 mg/dL (0.5-0.9); ESTIMATED GFR > 60; GLUCOSE 107 mg/dL (70-104); GOT 56 U/L (10-30); GPT 65 U/L (10-36); MAGNESIUM 1.8 mg/dL (1.5-2.7); POTASSIUM 2.8 mmol/L (3.5-5.1); SODIUM 140 mmol/L (136-145); TCO2 27 mmol/L (25-35); TOTAL BILIRUBIN 0.78 mg/dL (0.20-1.00); TOTAL PROTEIN 5.2 g/dL (6.3-8.3)
[2019-06-30] MEDS ORDERED: VANCOMYCIN 1,450 MG in NS 250 ML IV SCH ×4 (08:00)
[2019-06-30] MEDS ORDERED: XYLOCAINE-MPF 2% ONE (11:03)
[2019-06-30] MEDS ORDERED: DIPRIVAN 1% ONE (11:04)
--- NOTE | 2019-06-30 11:43 | ENDOSCOPY OPERATIVE NOTE ---
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 PROCEDURE PERFORMED: EGD w/ biopsy MEDICATIONS: Per Anesthesia TOPICAL ANESTHETIC: none CONSENT: The patient understands the risks and benefits of the procedure and understands that these r isks include, but are not limited to: sedation, allergic reaction, infection, perforation and/or bleeding. Alternative means of evaluation and treatment include, among others: physical exam, x-rays, and/or surgical intervention. The patient elects to proceed with this endoscopic procedure. HISORY AND PHYSICAL: 06/30/2019 function. Hand hygiene and appropriate measures for infection prevention was taken. After the risks, benefits and alternatives of the procedure were thoroughly explained, Informed consent was verified, confirmed and timeout was successfully executed by the treatment team. The patient was anesthetized with topical anesthesia and the [id number] ([id number]) endoscope was introduced through the mouth and advanced to the second portion of the duoden um. Retroflexion was performed in the stomach and revealed no abnormalities. The gastroscope was then slowly withdraw n and removed. ESOPHAGUS: The mucosa of the esophagus appeared normal. The z-line was noted at 40cm from the incis ors. The z-line appeared normal. STOMACH: Moderate gastritis (inflammation) was found in the entire examined stomach with mild amount of associated hematin. A biopsy was performed using cold forceps. Sample sent for histology. DUODENUM: The duodenum was normal. SPECIMENS REMOVED: Yes ADVERSE EVENTS: There were no complications. POSTOPERATIVE DIAGNOSIS: 1. The mucosa of the esophagus appeared normal 2. The z-line was noted at 40cm from the incisors 3. Gastritis (inflammation) was found in the entire examined stomach; biopsy was performed 4. The duodenum was normal RECOMMENDATIONS: 1. Await biopsy results 2. Continue PPI PO once daily 3. Avoid aspirin and NSAIDs 4. Advance diet as tolerated REPEAT EXAM: Mil Frederick MD eSigned: Mil Frederick MD 06/30/2019 11:43 AM cc: PATIENT NAME: Ev Castro MR#: [id number]
[2019-06-30] MEDS ORDERED: PROTONIX PO ONE ×2 (11:48→13:15)
--- NOTE | 2019-06-30 12:06 | GASTROENTEROLOGY CONSULTATION ---
DATE: 06/30/2019 REASON FOR CONSULTATION: Abdominal pain, ileitis, mesenteric adenitis. HISTORY OF PRESENT ILLNESS: Ms Ev Castro is a 64-year-old woman with past medical history of recurrent pancreatitis, history of Helicobacter pylori treated, mixed IBS, colonic polyps, fibromyalgia, breast cancer in remission, who presents with recurrent epigastric severe abdominal pain that awoke her from her sleep yesterday morning at 4 a.m. The patient reports initially presenting to [facility] and being hospitalized for a urinary tract infection. She says that prior to her admission on 06/25/2019, she had generalized fatigue and malaise, fever documented to 102 degrees at home that started last Wednesday about a week ago. She complained of some nonbloody and nonbilious emesis at that time and some mild diarrhea without any evidence of melena or rectal bleeding. She denies any dysuria, hematuria, back pain, or polyuria. She has noted that over the last year, she has had some intermittent nonradiating epigastric pain, thought to be related to her pancreas. She has had extensive workup over the last several months including MRI of the abdomen, ERCP in May of this year at [facility] and she is being followed at [facility] for this. She also follows with Dr. Weiss here. She thought that her symptoms were from a GI bug and was admitted found to have Proteus urinary tract infection and mesenteric adenitis on her CT. She was discharged on Levaquin and antiemetics and on the day of discharge, she says she was doing well without any symptoms until yesterday morning. No sick contacts, travel, changes in her medications. She denies having history of pyelonephritis or urinary tract infections like this. No significant weight loss. She has developed a nonproductive cough. No shortness of breath or chest pain or dysphagia. No GERD. She takes NSAIDs with Aleve once a week. She does say that this morning, she did have some emesis with some grayish color material. REVIEW OF SYSTEMS: As per HPI, otherwise 12 point review of systems is negative. PAST MEDICAL HISTORY: History of treated H pylori in the remote past, IBS mixed, colonic polyps, history of breast cancer status post lumpectomy and chemoradiation in remission in 2005, recurrent pancreatitis from an unclear etiology, fibromyalgia. PAST SURGICAL HISTORY: Lumpectomy, hysterectomy, cholecystectomy, sphincterotomy of the ampulla. FAMILY HISTORY: Colon cancer in her father diagnosed in his 70s. SOCIAL HISTORY: No smoking, alcohol or drug use. ALLERGIES: To morphine and penicillins. MEDICATIONS: She takes Aleve and Tylenol p.r.n. No other medications. PHYSICAL EXAMINATION: Vital Signs: Temperature is 97.8 degrees, heart rate of 81, respiratory rate of 18, blood pressure 128/57, O2 saturation 100% on room air. General: The patient is awake, alert, oriented, no acute distress. HEENT: Sclerae anicteric. Moist mucous membranes. Extraocular motor intact. Neck: Supple. No JVD or lymphadenopathy. Cardiac: Regular rate and rhythm. No murmurs, rubs, or gallops. Lungs: Clear to auscultation bilaterally. No wheezing, rales, or rhonchi. Abdomen: Nondistended. Mild tenderness to palpation in the epigastric and right lower quadrant. No rebound or guarding. No ascites. No distention. Bowel sounds are present. Extremities: No clubbing, cyanosis, or edema. Skin: No rashes. Warm and well perfused. Neurologic: Nonfocal. LABORATORY DATA: White count of 8.48 from 12.54 yesterday, hemoglobin is 10.9 from 14.8 yesterday, platelets of 259,000. MCV of 86.1. Sodium of 140, potassium 2.8, chloride of 104, bicarb 27, BUN of 11, creatinine 0.5, glucose of 107, calcium of 7.4. LFTs with a bilirubin of 0.78 from several days ago during her last admission, AST of 56, ALT of 65, alkaline phosphatase 68, total protein of 5.2, albumin 3.2, TSH of 0.19, lipase of 18. UA shows cloudy urine with 2+ protein, 3+ ketones, 3+, blood, trace white blood cells, no epithelial cells, trace glucose. MICROBIOLOGY: From 06/25/2019 showed Proteus that is pansensitive except for nitrofurantoin. Repeat urine culture shows no growth from yesterday. IMAGING: CT of the abdomen and pelvis from yesterday shows interval development of significant ileal wall thickening with a small amount of surrounding fluid indicating nonspecific enteritis. Consider infectious and inflammatory etiologies. CT of the abdomen and pelvis on 06/27/2019 showed mild mesenteric adenitis with little change compared to prior exam. CT of the abdomen and pelvis on 06/25/2019 with IV contrast shows mesenteric panniculitis, bibasilar subsegmental atelectasis. ASSESSMENT AND PLAN: Ms. Ev Castro is a 64-year-old woman with past medical history of mixed irritable bowel syndrome, recurrent pancreatitis, history of Helicobacter pylori infection treated, colonic polyps and recent admissions for a Proteus urinary tract infection, who re- presents with epigastric pain, nausea, vomiting, and mild diarrhea. Her labs are notable for hypokalemia, new onset anemia, likely dilutional, however, has downtrended over the last week and the patient reports some grayish emesis that started in the last day or so. This is concerning for possibly gastrointestinal bleed in the setting of prior Helicobacter pylori, there is concern for peptic ulcer disease. The patient reports having her last EGD and colonoscopy with Dr. Weiss 1 to 2 years ago. At that time, she had colonic polyps removed that were small. She denies any red flags including weight loss or melena, hematochezia or dysphagia. We will plan for a diagnostic EGD today. Keep her n.p.o. Put her on a PPI post procedure. We will obtain records from her outpatient MRI and possibly ERCP that were done recently. We will trend her hemoglobin and hematocrit. Her LFTs are slightly elevated. This could be a result of fatty liver seen on imaging. Also cholestasis of sepsis. We will trend her LFTs, and check acute hepatitis panel if not done previously. She is currently on IV fluids. # N/V/D # Epigastric pain # Coffee ground emesis # IBS-mixed # History of recurrent pancreatitis # History of H pylori # Anemia Thank you for this consult. Further recommendations postprocedure. [facility]
--- NOTE | 2019-06-30 14:10 | PROGRESS NOTE ---
DATE: 06/30/2019 SUBJECTIVE: She is a patient of Dr. Rashid Nicholas. This is a 64-year-old who was just admitted to the hospital with nausea and vomiting. She had a CT which demonstrated mesenteric adenitis. That part of her symptoms continued to improve throughout the hospital stay day. She was having some right-sided flank pain. Ultimately grew out bacteria in her urine that was sensitive to Levaquin. Diet was advanced and she tolerated full liquids. CT was repeated and again showed mesenteric adenitis and was discharged home. Came back on yesterday on 06/29/2019 after she got home and she was unable to tolerate liquids and had nausea and vomiting and states that she could not keep anything down. Denied any fever chills. She has a history of pancreatitis in the past and a history of H. pylori. She has had surgery on her pancreatic duct to open her pancreatic duct. In the past, she has had cholecystectomy, hysterectomy, lumpectomy from cancer in 2005 and she received chemotherapy and radiation. ADMISSION DIAGNOSES: 1. Hyperbilirubinemia. 2. Dyspepsia. 3. Abdominal discomfort. 4. Acute hepatitis with AST and ALT both mildly elevated at 60 and 70, respectively. Both were normal during the last hospital admission. 5. Enteritis. CT scan showed enteritis, [address] scans, with mesenteric adenitis without colon inflammation. 6. It was felt she had volume depletion and recent pyelonephritis with treatment. 7. Hypertension. OBJECTIVE: General: On exam today, she just finished EGD. Report was that she had gastritis. Vital Signs: Temperature is 98.3 degrees, pulse 82, respirations 16, blood pressure 128/56. Eyes: Pupils are equal and round. Lungs: Clear in all lung de la cruz. Cardiovascular: Regular rhythm and rate without murmur or S3. Abdomen: Nondistended. Nontender. Urine output: 630 mL. ASSESSMENT AND PLAN: 1. Apparently, the esophagus appeared normal. Z-line was at 40 cm from incisors. There was gastritis found in the entire examined stomach. Biopsy was performed. Duodenum was normal. 2. Gastritis. Continue high-dose proton pump inhibitors. 3. She has a medical history of mixed irritable bowel syndrome. 4. Recurrent pancreatitis. 5. History of Helicobacter pylori positive infection. 6. Colonic polyps. 7. Recent admission for Proteus urinary tract infection. REVIEW OF ORDERS: I do not see any change. She is on Protonix 40 mg p.o. daily. I think we will go up to 40 mg twice a day and consider Carafate. cc: Jesse Ceballos MD
[2019-06-30] MEDS: POTASSIUM CHLORIDE 20 MEQ/SWI 20 MEQ/100 ML IVPB IV SCH ×2 (14:42→19:49)
[2019-06-30] MEDS: CARAFATE LIQUID PO SCH ×2 (15:56→21:08)
[2019-06-30] MEDS: PROTONIX PO SCH (21:08)
[2019-07-01] MEDS: CARAFATE LIQUID PO SCH ×2 (02:54→08:33)
[2019-07-01] MEDS: NS 1,000 ML IV SCH ×4 (02:54→18:54)
[2019-07-01 06:20] LABS: BASO# 0.03 X1000 (0.0-0.2); BASO% 0.4 % (0.0-0.8); EOS# 0.11 X1000 (0.0-0.7); EOS% 1.5 % (0.0-10.0); HEMATOCRIT 37.1 % (37.0-47.0); HEMOGLOBIN 12.5 g/dL (12.0-16.0); IMM GRAN# 0.08 X1000 (0.0-0.04); IMM GRAN% 1.1 % (0.0-0.5); LYMPH# 2.04 X1000 (1.2-3.4); LYMPH% 28.5 % (20.5-51.1); MCHC 33.7 g/dL (33-37); MONO# 0.55 X1000 (0.11-0.59); MONO% 7.7 % (1.7-9.3); MPV 9.3 FL (7.4-10.4); NEUT# 4.34 X1000 (1.4-6.5); NEUT% 60.8 % (42.2-75.2); PLT 255 X1000 (130-400); RBC 4.47 XMIL (4.2-5.4); RDW 14.3 % (11.5-14.5); WBC 7.15 X1000 (4.8-10.8)
[2019-07-01 06:44] LABS: AGAP 12; ALB/GLOB RATIO 1.6; ALKALINE PHOSPHATASE 83 U/L (32-104); BUN 5 mg/dL (8-22); CALCIUM 7.3 mg/dL (8.8-10.2); CHLORIDE 106 mmol/L (98-107); COSMO 285; CREATININE 0.5 mg/dL (0.5-0.9); ESTIMATED GFR > 60; GLUCOSE 114 mg/dL (70-104); GOT 80 U/L (10-30); GPT 102 U/L (10-36); MAGNESIUM 1.9 mg/dL (1.5-2.7); POTASSIUM 3.6 mmol/L (3.5-5.1); SODIUM 144 mmol/L (136-145); TCO2 26 mmol/L (25-35); TOTAL BILIRUBIN 1.13 mg/dL (0.20-1.00); TOTAL PROTEIN 6.5 g/dL (6.3-8.3)
[2019-07-01] MEDS ORDERED: PROTONIX PO SCH (07:00)
[2019-07-01] MEDS: PROTONIX PO SCH ×2 (08:33→20:42)
[2019-07-01] MEDS ORDERED: BENTYL PO PRN (10:12)
--- NOTE | 2019-07-01 10:15 | PROGRESS NOTE ---
DATE: 07/01/2019 Ms. Castro says she is still getting some of these gripping pains, feels like contractions in the epigastric area. Her abdominal and pelvic CT, there was interval development of ileal wall thickening with small amount of surrounding fluid indicating nonspecific enteritis. Dr. Frederick had performed an EGD. There was some gastritis found in the entire examined stomach. Biopsies performed. Duodenum was normal. So, continue proton pump inhibitors and avoid nonsteroidal anti- inflammatories. PHYSICAL EXAMINATION: Today, afebrile, temp 98.7 degrees, pulse 85, respirations 19, blood pressure 155/63.HEENT: Pupils are equal, round. Lungs: Clear in all lung de [place] cruz. Cardiovascular: Regular rhythm and rate without murmur or S3. Urine output was 2000 mL. She does have a history of Helicobacter pylori positive infection in the past and she has had a recent admission for Proteus urinary tract infection. cc: Jesse Ceballos MD
--- NOTE | 2019-07-01 11:11 | PROVIDER PROGRESS NOTE ---
Progress Note S: No acute overnight events. Patient reports having some epigastric "soreness" and non-bloody diarrhea overnight. Afebrile. No CP, SOB. O: Last Vital Signs Temp 98.7 F 07/01/19 08:04 Pulse 85 07/01/19 08:04 Resp 19 07/01/19 08:04 BP 155/63 07/01/19 08:04 Pulse Ox 99 07/01/19 08:04 Height 5 ft 4 in Weight 152 lb 3 oz GEN: awake, alert, NAD HEENT: anicteric, MMM CV: RRR, no murmurs PULM: CTAB, no wheezing ABD: minimal epigastric TTP, no rebound or guarding EXT: no cce NEURO: nonfocal LABS: 07/01/19 07/01/19 05:55 05:55 WBC 7.15 Hgb 12.5 Plt Count 255 Sodium 144 Potassium 3.6 D Chloride 106 Carbon Dioxide 26 BUN 5 L D Creatinine 0.5 Glucose 114 H Total Bilirubin 1.13 H AST 80 H ALT 102 H Total Protein 6.5 Albumin 4.0 ASSESSMENT AND PLAN: Ms. 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 CT A/P showed mesenteric adenitis. No acute pancreatitis. She has mildly elevated LFTs likely from known fatty liver seen on imaging. No biliary dilation. She did have some coffee ground emesis as well found to have some gastritis with associated hematin on EGD. # N/V/D: antiemetics prn, send stool culture and cdiff # Gastritis: continue PPI; stopped carafate # Abdominal pain: started dicyclomine 20mg TID prn # Recurrent pancreatitis: fecal elastase pending to assess for pancreatic insufficiency; patient had EUS as outpatient on 05/25 # Coffee ground emesis: secondary to erosive gastritis: biopised to evaluate for H pylori eradication # Abnormal LFTs: likely from fatty liver; continue to trend # Mesenteric adenitis: suspect related to viral vs bacterial gastroenteritis # FEN: advance to low fat diet as tolerated, continue IVFs Will follow with you. Please call with questions
[2019-07-01] MEDS: IMODIUM PO PRN ×2 (15:19→18:54)
[2019-07-02] MEDS: NS 1,000 ML IV SCH ×2 (01:32→10:42)
[2019-07-02 08:06] VITALS: BP 144/61
[2019-07-02] MEDS: PROTONIX PO SCH (10:24)
--- NOTE | 2019-07-02 10:34 | DISCHARGE SUMMARY ---
ADMISSION DATE: 06/29/2019 DISCHARGE DATE: 07/02/2019 PHYSICIAN: Her doctor is Dr. Rasihd Nicholas. HOSPITAL COURSE: This is a 64-year-old who was just in the hospital at [facility], treated for urinary tract infection. They found some adenitis on CT scan and they sent her here to the hospital. She was having abdominal pain and some right-sided flank pain. She was discharged home. After getting home, not able to tolerate full liquids and having increased nausea, vomiting. Presented to our hospital and EGD discovered severe gastritis of the entire stomach, so plan is to kind of advance her diet slowly. I will keep her on high-dose proton pump inhibitor. She has mixed irritable bowel syndrome, recurrent pancreatitis in the past with pancreatic divisum, history of Helicobacter infection which has been treated in the past, colonic polyps and recent admission for UTI, so we plan to let her go home. DISCHARGE MEDICATIONS: 1. Bentyl 20 mg t.i.d. p.r.n. 2. Protonix 40 mg p.o. b.i.d. 3. Alprazolam 1 mg p.o. t.i.d. 4. She can stop her levofloxacin. 5. Lisinopril 10 mg daily. cc: Jesse Ceballos MD
--- NOTE | 2019-07-02 12:16 | PROVIDER PROGRESS NOTE ---
Progress Note S: No acute overnight events. Afebrile. No N/V. Tolerating liquid diet. She reports some mild RLQ discomfort. Two formed BMs yesterday that were nonbloody. Patient reports improvement of abdominal pain with bentyl prn. O: Last Vital Signs Temp 98.6 F 07/02/19 08:05 Pulse 84 07/02/19 08:05 Resp 21 07/02/19 08:05 BP 144/61 07/02/19 08:05 Pulse Ox 100 07/02/19 08:05 Height 5 ft 4 in Weight 152 lb 3 oz GEN: awake, alert, NAD HEENT: anicteric, MMM CV: RRR, no murmurs PULM: CTAB, no wheezing ABD: soft NT/ND, NABS, no rebound or guarding EXT: no cce NEURO: nonfocal LABS: 07/01/19 07/01/19 05:55 05:55 WBC 7.15 Hgb 12.5 Plt Count 255 Sodium 144 Potassium 3.6 D Chloride 106 Carbon Dioxide 26 BUN 5 L D Creatinine 0.5 Glucose 114 H Total Bilirubin 1.13 H AST 80 H ALT 102 H Total Protein 6.5 Albumin 4.0 Cdiff negative. Few fecal leukocytes. Stool culture pending Fecal elastase pending ASSESSMENT AND PLAN: Ms. 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 CT A/P showed mesenteric adenitis. No acute pancreatitis. She has mildly elevated LFTs likely from known fatty liver seen on imaging. No biliary dilation. She did have some coffee ground emesis as well found to have some gastritis with associated hematin on EGD. # N/V/D: improved; continue bentyl, imodium # Gastritis: continue PPI # Abdominal pain: cont dicyclomine 20mg TID-QID prn # Recurrent pancreatitis: fecal elastase pending upon discharge; patient had EUS as outpatient on 05/25 # Coffee ground emesis: secondary to erosive gastritis: biopisies to evaluate for H pylori eradication pending # Abnormal LFTs: likely from fatty liver # Mesenteric adenitis: suspect related to viral vs bacterial gastroenteritis # FEN: low fat, GI soft diet on discharge Will sign off. Patient instructed to follow-up with Dr. Nicholas and Isela upon discharge. Please call with questions
== END 2019-07-02 13:20 | disposition home or self-care (01) | DRG 392 ==
LOC: P.ED 13:47 → 3N 18:37 → SUATTDRO 18:37
PROVIDERS: ATTEND Emergency Medicine